=== PATIENT | female | born 1960 ===

== ENCOUNTER 2018-07-01 08:07 | Emergency (ER) | payer BC ==
[2018-07-01 08:19] VITALS: PULSE 78; RESP 18; TEMP 98.3
--- NOTE | 2018-07-01 09:08 | C.PDOC ---
History Of Present Illness 57 y/o female presents to ED with c/o of waking up this morning and felt right arm asleep. Patient is unsure if she slept on right arm and states she was at [employer] "few days ago", was told her blood pressure was elevated and to check it at home regularly. Patient has no history of HTN and states she has been checking blood pressure at home and has been elevated. At ED blood pressure is within normal limits and denies headache, weakness, nausea, vomiting or any other complaints at this time. Time Seen by Provider: 07/01/18 08:21 Chief Complaint (Nursing): High Blood Pressure History Per: Patient History/Exam Limitations: no limitations Onset/Duration Of Symptoms: Days Current Symptoms Are (Timing): Still Present Past Medical History Reviewed: Historical Data, Nursing Documentation, Vital Signs Vital Signs: Last Vital Signs Temp 98.3 F 07/01/18 09:25 Pulse 78 07/01/18 09:25 Resp 18 07/01/18 09:25 BP 139/90 07/01/18 09:25 Pulse Ox 100 07/01/18 10:05 - Medical History PMH: No Chronic Diseases Surgical History: No Surg Hx Family History: States: No Known Family Hx - Social History Hx Alcohol Use: No Hx Substance Use: No Review Of Systems Constitutional: Negative for: Fever, Chills Gastrointestinal: Negative for: Nausea, Vomiting Musculoskeletal: Positive for: Arm Pain Skin: Negative for: Rash Neurological: Negative for: Weakness, Numbness Physical Exam - Physical Exam Appears: Non-toxic, No Acute Distress Skin: Warm, Dry, No Rash Head: Atraumatic, Normacephalic Eye(s): bilateral: Normal Inspection Oral Mucosa: Moist Neck: Supple Cardiovascular: Rhythm Regular Respiratory: Normal Breath Sounds, No Rales, No Rhonchi, No Wheezing Gastrointestinal/Abdominal: Soft, No Tenderness, No Guarding, No Rebound Extremity: Normal ROM, Capillary Refill (<2 seconds), No Deformity Neurological/Psych: Oriented x3, Normal Speech, Normal Motor, Normal Sensation ED Course And Treatment ECG: Interpreted By Me ECG Rhythm: Sinus Rhythm, Nonspecific Changes ECG Interpretation: No Acute Changes Rate From EC O2 Sat by Pulse Oximetry: 100 (RA) Pulse Ox Interpretation: Normal - Other Rad No standard instances X-Ray: Viewed By Me, Read By Radiologist Interpretation: FINDINGS: BONES: Straightened cervical curvature without fracture or spondylolisthesis identified. Vertebral body disc interspace heights appear normal as well as the odontoid process. DISC SPACES: Moderate mid to inferior cervical spondylosis identified. SOFT TISSUES: Normal. No prevertebral soft tissue swelling. OTHER FINDINGS: None. IMPRESSION: Straightened curvature without fracture or spondylolisthesis. Multilevel cervical spondylosis appears moderate in severity. Progress Note: Neck xray, EKG Ordered. On re-evaluation lungs clear, neuro intact in no distress Reassessment Condition: Unchanged Disposition Counseled Patient/Family Regarding: Studies Performed, Diagnosis, Need For Followup - Disposition Referrals: Anabel Trujillo MD [Medical Doctor] - Disposition: HOME/ ROUTINE Disposition Time: 10:30 Condition: GOOD Additional Instructions: Follow up with your PMD for scheduled appointment tomorrow Return to ED if any increase symptoms Instructions: High Blood Pressure in Adults, Low Salt Diet, Paresthesias (DC), Hand Numbness Forms: [facility] ([place]), Work Excuse - POA Present On Arrival: None - Clinical Impression Clinical Impression: Hypertension, Arm paresthesia, left - PA / [employer] / Resident Statement MD/DO has reviewed & agrees with the documentation as recorded. - Scribe Statement The provider has reviewed the documentation as recorded by the Haley Gonzalez All medical record entries made by the Haley were at my direction and personally dictated by me. I have reviewed the chart and agree that the record accurately reflects my personal performance of the history, physical exam, medical decision making, and the department course for this patient. I have also personally directed, reviewed, and agree with the discharge instructions and disposition.
[2018-07-01 09:10] VITALS: O2SAT 100
[2018-07-01 09:26] VITALS: BP 139/90
--- NOTE | 2018-07-01 09:59 | RAD ---
Date of service: 07/01/2018 PROCEDURE: Cervical Spine Radiographs. HISTORY: Pain. COMPARISON: None. FINDINGS: BONES: Straightened cervical curvature without fracture or spondylolisthesis identified. Vertebral body disc interspace heights appear normal as well as the odontoid process. DISC SPACES: Moderate mid to inferior cervical spondylosis identified. SOFT TISSUES: Normal. No prevertebral soft tissue swelling. OTHER FINDINGS: None. IMPRESSION: Straightened curvature without fracture or spondylolisthesis. Multilevel cervical spondylosis appears moderate in severity.
--- NOTE | 2018-07-02 20:24 | CARD ---
APPROVED REPORT Date of service: 07/01/2018 EKG Measurement Heart [id number] <Conclusion> Normal sinus rhythm Nonspecific T wave abnormality Abnormal ECG
== END 2018-07-01 09:26 | disposition home or self-care (01) ==
LOC: C.ER 08:07
DX: I10 Essential (primary) hypertension (principal); R20.2 Paresthesia of skin